=== PATIENT | female | born 1945 | race Caucasian/White ===

== ENCOUNTER 2018-05-30 10:57 | Outpatient (CLI) | payer MEDICARE, OTHER | END 2018-05-30 10:58 | disposition home or self-care (01) | LOC: SC 10:57 | PROVIDERS: ATTEND Internal Medicine Pulmonary Disease | DX: G47.33 Obstructive sleep apnea (adult) (pediatric) (principal); E66.9 Obesity, unspecified; Z68.36 Body mass index [BMI] 36.0-36.9, adult | CPT/HCPCS: 99203; G0463; 99212 ==

== ENCOUNTER 2018-06-01 21:24 | Outpatient (CLI) | payer MEDICARE, OTHER | END 2018-06-01 21:25 | disposition home or self-care (01) | LOC: SC 21:24 | PROVIDERS: ATTEND Internal Medicine Pulmonary Disease | DX: G47.61 Periodic limb movement disorder (principal) | CPT/HCPCS: 95810 ==

== ENCOUNTER 2018-07-11 12:46 | Outpatient (CLI) | payer MEDICARE, OTHER | END 2018-07-11 12:47 | disposition home or self-care (01) | LOC: SC 12:46 | PROVIDERS: ATTEND Nurse Practitioner Family | DX: G47.61 Periodic limb movement disorder (principal); R25.2 Cramp and spasm | CPT/HCPCS: 99215; G0463; 99212 ==

== ENCOUNTER 2018-09-13 | Outpatient (CLI) | payer MEDICARE, OTHER | END 2018-09-13 08:18 | disposition home or self-care (01) | DX: G47.8 Other sleep disorders (principal); G47.61 Periodic limb movement disorder; G47.62 Sleep related leg cramps | CPT/HCPCS: 99214; G0463; 99212 ==